=== PATIENT | female | born 1975 | race Caucasian/White ===

== ENCOUNTER → 2017-11-11 11:24 | Outpatient (CLI) | payer BC, SELFPAY ==
[2017-11-16 11:13] LABS: HPV Reflexed? NOT INDICATED
== END ==
PROVIDERS: Visit Provider Obstetrics & Gynecology
DX: Z12.4 Encounter for screening for malignant neoplasm of cervix (principal)
CPT/HCPCS: 88175; G0145

== ENCOUNTER → 2018-04-19 08:09 | Outpatient (CLI) | payer BC, SELFPAY ==
--- NOTE | 2018-04-19 08:12 | BI_ITS ---
MAMMOGRAPHY - BILATERAL SCREENING REASON FOR EXAM: Female, 42 years old. Routine annual screening examination. PERTINENT HISTORY: Grandmother with breast cancer. TECHNIQUE: Digital bilateral breast dewayne (3D mammographic acquisition) in the CC and MLO projections. 2-D mediolateral oblique (MLO) and craniocaudad (CC) views of both breasts were obtained. CAD: Full Field Digital Mammography with Computer Added Detection was performed. COMPARISON: None. Baseline examination. FINDINGS: Breast Composition: The breasts are heterogeneously dense, which may obscure small masses. There are no dominant masses or suspicious calcifications. No other significant abnormalities are identified. BI/SCREENING MAMM (CAD), BILAT IMPRESSION: Negative screening mammogram. Yearly followup mammogram recommended. (A) ASSESSMENT CATEGORY: BIRADS Category 1: Negative. A letter regarding these results will be sent to the patient by the facility within 30 days. Approximately 10% of breast cancers are not detected by mammography. A normal mammogram should not delay biopsy of a clinically suspicious abnormality. [id number] Electronically Signed: Ranjith Padilla MD at 9:38 EST , Service support ,
== END ==
PROVIDERS: Family Provider Family Medicine; PCP Family Medicine; Referring Provider Obstetrics & Gynecology; Visit Provider Obstetrics & Gynecology
DX: Z12.31 Encounter for screening mammogram for malignant neoplasm of breast (principal)
CPT/HCPCS: 77063; 77067

== ENCOUNTER 2021-10-12 08:25 | Day surgery (SDC) | payer BC, SELFPAY ==
[2021-10-12] VITALS (7 sets, daily range): BP systolic 80–123; BP diastolic 48–77; PULSE 62–83; RESP 18–20; TEMP 36.2–36.9; O2SAT 95–100; BMI 24.5
--- NOTE | 2021-10-12 | IMM_PTH ---
PATIENT: YOHAN DIAS LOC: EN U#:[id number] AGE/SX: 46/F ROOM: RE10/12/[address]: Dr. Harriet Chung MD : 1975 BED: DIS: 10/12/2021 SPEC #: [id number] RECD: 10/13/21 07:55 STATUS: JAQUELINE REQ #: [id number] [facility]: 10/12/21 00:[address]: Harriet Chung DEPT: IMMUNOHISTOCHEMISTRY RECD BY: Dolly Malin ENTERED: 10/13/21 07:56 SP TYPE: IMMUNO OTHR DR: Dr. James Alcantar MD Tissues: COLON BIOPSY Procedures: H Pylori (initial) PHYSICIAN & INSTITUTION [place] [address] SPECIMEN INFORMATION: Tissue Source: A. Pre-pyloric biopsy Clinical Info: Anemia Specimen Number: [id number] CPT code: 93630 METHODOLOGY: Deparaffinized sections of prefer/formalin-fixed tissue or PAP/DQ stained slides are incubated with monoclonal/polyclonal antibodies/oligonucleotide probes. Localization is made via biotin free immunoperoxidase method. Appropriate controls are performed and reacted as expected. Results on target cell population are indicated in the following table: RESULTS: ANTIBODY / CLONE RESULT Block A H Pylori (polyclonal) negative These tests were developed and their performance characteristics determined by [facility]. They may not have been cleared or approved by the U.S. Food and Drug Administration. The FDA has determined that such clearance or approval is not necessary. The above immunohistochemical/dualISH markers are ordered and reviewed by the Pathologist. INTERPRETATION: A. Pre-pyloric biopsy: Negative for Helicobacter pylori organisms. SJ:swapna 10/13/21
[2021-10-12] MEDS: Lactated Ringers 1,000 ML 15 ML IV (08:35)
[2021-10-12 08:45] LABS: Internal QC Validated? YES +Cl - CLEAR BKGD; Pregnancy, Urine Negative Negative
--- NOTE | 2021-10-12 08:57 | HP.PCM_ITS ---
HPI - General HPI Narrative YOHAN DIAS, is a 46 F who presents for EGD and colonoscopy due to anemia. Patient was seen in the office back in mid June. Patient states that mid May hemoglobin was 9.6 and dropped to 9.3 in early June as patient initially wanted to try taking iron and see if that helps. Patient states she is not currently on any iron. Patient states she has not had any recent blood work. Patient denies any red or black stools since that appointment. Previously did have occasional bright red blood and she does have a history of hemorrhoids. Patient denies any reflux. Patient's never had a previous colonoscopy. Patient did have a laparoscopic gastric sleeve done in August 2016. No family history of colon cancer. [facility] Medical History (Updated 10/08/21 @ 13:40 by Vicenta Bobo) Anemia Anxiety Anxiety and depression Depression Hypothyroidism Lichen sclerosus Non-smoker Thyroid disease Home Medications clobetasol 0.05 % topical cream 1 applic topical PRN PRN Rash 07/15/21 [History Last Taken Unknown] escitalopram oxalate 20 mg tablet 20 mg PO DAILY 07/15/21 [History Last Taken Unknown] estradiol 0.01% (0.1 mg/gram) vaginal cream 1 g vaginal PRN PRN PRN 07/15/21 [History Last Taken Unknown] hydroxyzine HCl 25 mg tablet 25 mg PO TID PRN Anxiety 07/15/21 [History Last Taken Unknown] levothyroxine 50 mcg tablet 50 mcg PO DAILY 07/15/21 [History Last Taken Unknown] Allergy/AdvReac Type Severity Reaction Status Date / Time No Known Allergies Allergy Verified 10/12/21 08:42 Family History (Updated 07/15/21 @ 09:08 by Briana Doherty) Mother Cancer endometrial Heart disease Hypertension CVA (cerebral vascular accident) Pacemaker Father Hypertension Surgical History (Updated 07/15/21 @ 09:06 by Briana Doherty) History of 3 sections History of dilation and curettage History of gastric restrictive surgery Hx of abdominoplasty Hx of LASIK Social History (Updated 07/15/21 @ 09:08 by Briana Doherty) Smoking Status: Never smoker Past Medical/Surgical History Planned Operation Planned Operative Procedure/s: COLONOSCOPY, EGD Previous Hospitalizations/Surgeries HX Hospitalizations: No Any Problems With Anesthesia: No You/Your Family Experience Fever (Hyperthermia) With Anes: No Cholinesterase deficiency: No Cardiovascular Hx of Irregular Heartbeat and/or Afib: No Hx Heart Attack: No Hx Congestive Heart Failure: No Hx Hypertension: No Hx Pacemaker: No Respiratory Hx Chronic Obstructive Pulmonary Disease (COPD): No Hx Asthma: No Hx Emphysema: No Hx Sleep Apnea: No Hx Respiratory Tract Infection/Cold (presently): No Do You Snore Loudly (louder than talking or can be heard): No Do You Often Feel Tired/ Fatigued/ Sleepy Dring Daytime?: No Has Anyone Observed You Stop Breathing During Sleep?: No Result (for STOP score): Negative Smoking Status: Never smoker Gastrointestinal Hx Gastroesophageal Reflux: No Hx Ulcer: No Neurological Hx Seizures: No Hx Head/Neck Injury: No Hx Headaches: No Hx Back Injury/Pain: Yes Does patient have nerve stimulator: No Reproduction : No Miscellaneous Recent Exposure to Contagious Disease: No Allergies No Known Allergies Allergy (Verified 10/12/21 08:42) Discharge Is Pt Admitted From a Longterm, or a Skilled Nursing: No After D/C, Where Do you Plan to Go: Return Home Vital Signs Vital Signs Vital Signs: 10/12/21 08:42 10/12/21 08:42 Temperature 97.2 F L Temperature Source Temporal Pulse Rate 62 Respiratory Rate 18 Respiratory Pattern Normal Blood Pressure 123/77 H Blood Pressure Mean 92 Blood Pressure Source Monitor Blood Pressure Position Semi-Fowlers Blood Pressure Location Left Arm Pulse Ox 100 Oxygen Delivery Method Room Air Weight Weight: 138 lb 14.259 oz Body Mass Index (BMI) 24.5 Physical Exam Const alert, oriented x3 and no apparent distress HEENT normocephalic and head/scalp atraumatic Resp normal respiratory effort Cardio regular rate GI soft to palpation and non-tender; Negative for non-distended Palpation: Negative for guarding Extremity no clubbing, cyanosis or edema Neuro CN's II-XII intact bilaterally Psych mental status grossly normal Assessment & Plan Assessment/Plan (1) Anemia: PLAN: Plan Plan for an EGD and colonoscopy Surgery Risks - Colonoscopy Risks Include but are not Limited To: Risks include but are not limited to: Bleeding, perforation requiring further surgery, inability to complete colonoscopy requiring barium enema.
--- NOTE | 2021-10-12 09:30 | EGD_PTH ---
PATIENT: YOHAN DIAS LOC: EN U#:[id number] AGE/SX: 46/F ROOM: RE10/12/[address]: Dr. Harriet Chung MD : 1975 BED: DIS: 10/12/2021 SPEC #: [id number] RECD: 10/12/21 11:32 STATUS: JAQUELINE RECaitlin #: [id number] [facility]: 10/12/21 09:[address]: Harriet Chung DEPT: SURGICAL PATHOLOGY RECD BY: Rylie Tesfaye ENTERED: 10/12/21 12:16 SP TYPE: EGD BIOPSY OT DR: Dr. James Alcantar MD Tissues: A - Pylorus B - Ascending colon Procedures: Surgery Specimen Level IV HEADER OPERATION: Colonoscopy, EGD ([facility]) with biopsy and polypectomy PRE-OP DIAGNOSIS: Anemia TISSUE SUBMITTED: A. Pre-pyloric biopsy, B. Ascending colon polyp MICROSCOPIC DIAGNOSIS A. Pre-pyloric biopsy: Mild gastritis. B. Ascending colon polyp, polypectomy: Hyperplastic polyp. Submucosal lipoma. SJ 10/13/21 COMMENT A. The results of immunohistochemistry for Helicobacter pylori will be reported separately ([id number]). Case has been reviewed in consultation with Dr. Thurston who concurs with the above diagnosis. IDC:AM MICROSCOPIC DESCRIPTION Slides are reviewed. A. The specimen shows fragments of gastric mucosa with chronic inflammatory cell infiltrates in the lamina propria consisting of lymphocytes and plasma cells, consistent with mild chronic gastritis. GROSS DESCRIPTION A. Received is one container labeled with the patient name and designated pre-pyloric. The specimen consists of one irregular fragment of light williamson soft tissue that measures 0.3 x 0.3 x 0.1 cm. The specimen is totally submitted in one cassette. B. Received is one container labeled with the patient name and designated ascending colon polyp. The specimen consists of one williamson pink polyp that measures 1.0 x 0.7 x 0.3 cm. The specimen is totally submitted in one cassette. /JOSE:swapna 10/12/21 TC:1 CPT:58462 x2
--- NOTE | 2021-10-12 09:52 | OP.EGD_ITS ---
Patient Name: Rose Mary De Oliveira Procedure Date: 10/12/2021 9:05 AM Date of : 1975 Age: 46 Procedure: Upper GI endoscopy Indications: Iron deficiency anemia Providers: Harriet Chung MD Medicines: Monitored Anesthesia Care Patient Profile: This is a 46 year old female. She is status post laparoscopic sleeve gastrectomy 2017. Complications: No immediate complications. Procedure: Pre-Anesthesia Assessment: - Prior to the procedure, a History and Physical was performed, and patient medications and allergies were reviewed. The patient's tolerance of previous anesthesia was also reviewed. The risks and benefits of the procedure and the sedation options and risks were discussed with the patient. All questions were answered, and informed consent was obtained. Prior Anticoagulants: The patient has taken no previous anticoagulant or antiplatelet agents. ASA Grade Assessment: Per anesthesia. After reviewing the risks and benefits, the patient was deemed in satisfactory condition to undergo the procedure. After obtaining informed consent, the endoscope was passed under direct vision. Throughout the procedure, the patient's blood pressure, pulse, and oxygen saturations were monitored continuously. The colonoscope was introduced through the mouth, and advanced to the second part of duodenum. The upper GI endoscopy was accomplished without difficulty. The patient tolerated the procedure well. Scope In: 9:13:50 AM Scope Out: 9:18:29 AM Total Procedure Duration Time 0 hours 4 minutes 39 seconds Findings: The Z-line was regular and was found 40 cm from the incisors. The examined duodenum was normal. Striped mildly erythematous mucosa without bleeding was found in the prepyloric region of the stomach. Biopsies were taken with a cold forceps for histology. Biopsies were taken with a cold forceps for Helicobacter pylori cultures. Impression: - Z-line regular, 40 cm from the incisors. - Normal examined duodenum. - Erythematous mucosa in the prepyloric region of the stomach. Biopsied. Recommendation: - Await pathology results. - Discharge patient to home (ambulatory). - Resume previous diet. - Continue present medications. Procedure Code(s): --- Professional --- 02588, Esophagogastroduodenoscopy, flexible, transoral; with biopsy, single or multiple Diagnosis Code(s): --- Professional --- K31.89, Other diseases of stomach and duodenum D50.9, Iron deficiency anemia, unspecified CPT copyright 2017 [employer]. All rights reserved. The codes documented in this report are preliminary and upon javascript front end developer review may be revised to meet current compliance requirements. MD Harriet Blanca MD 10/12/2021 9:52:08 AM This report has been signed electronically. Number of Addenda: 0 Note Initiated On: 10/12/2021 9:05 AM
--- NOTE | 2021-10-12 09:52 | OP.CCLET_ITS ---
10/12/2021 James Alcantar Re : Upper GI endoscopy procedure for Rose Mary Alcantar This procedure was performed on Tuesday, October 12, 2021. My impressions and recommendations are as follows: Impressions : - Z-line regular, 40 cm from the incisors. - Normal examined duodenum. - Erythematous mucosa in the prepyloric region of the stomach. Biopsied. Recommendations : - Await pathology results. - Discharge patient to home (ambulatory). - Resume previous diet. - Continue present medications. My findings are described in the full procedure note, which is enclosed. If I can be of further assistance, please feel free to contact me at Doctor phone number(s): , Work: . Sincerely, MD Harriet Blanca MD 10/12/2021 9:52:08 AM This report has been signed electronically.
--- NOTE | 2021-10-12 09:58 | OP.COLON_ITS ---
Patient Name: Rose Mary De Oliveira Procedure Date: 10/12/2021 9:19 AM Date of : 1975 Age: 46 Procedure: Colonoscopy Indications: Iron deficiency anemia Providers: Harriet Chung MD Medicines: Monitored Anesthesia Care Patient Profile: This is a 46 year old female. She is status post laparoscopic sleeve gastrectomy 2017. Last Colonoscopy: none. The patient's first colonoscopy is today. Complications: No immediate complications. Procedure: Pre-Anesthesia Assessment: - Prior to the procedure, a History and Physical was performed, and patient medications and allergies were reviewed. The patient's tolerance of previous anesthesia was also reviewed. The risks and benefits of the procedure and the sedation options and risks were discussed with the patient. All questions were answered, and informed consent was obtained. Prior Anticoagulants: The patient has taken no previous anticoagulant or antiplatelet agents. ASA Grade Assessment: Per anesthesia. After reviewing the risks and benefits, the patient was deemed in satisfactory condition to undergo the procedure. After I obtained informed consent, the scope was passed under direct vision. Throughout the procedure, the patient's blood pressure, pulse, and oxygen saturations were monitored continuously. The colonoscope was introduced through the anus and advanced to the cecum, identified by the appendiceal orifice, ileocecal valve and palpation. The colonoscopy was performed without difficulty. The patient tolerated the procedure well. The quality of the bowel preparation was good. Scope In: 9:19:53 AM Scope Withdrawal Time 0 hours 12 minutes 38 seconds Scope Out: 9:39:55 AM Total Procedure Duration Time 0 hours 20 minutes 2 seconds Findings: A 5 mm polyp was found in the ascending colon. The polyp was sessile. The polyp was removed with a hot snare. Resection and retrieval were complete. The exam was otherwise without abnormality on direct and retroflexion views. Non-bleeding internal hemorrhoids were found. The hemorrhoids were Grade I (internal hemorrhoids that do not prolapse). Impression: - One 5 mm polyp in the ascending colon, removed with a hot snare. Resected and retrieved. - The examination was otherwise normal on direct and retroflexion views. - Non-bleeding internal hemorrhoids. Recommendation: - Discharge patient to home. - Resume previous diet. - Continue present medications. - Await pathology results. - Repeat colonoscopy in 5-10 years for surveillance based on pathology results. Procedure Code(s): --- Professional --- 82884, Colonoscopy, flexible; with removal of tumor(s), polyp(s), or other lesion(s) by snare technique Diagnosis Code(s): --- Professional --- D12.2, Benign neoplasm of ascending colon D50.9, Iron deficiency anemia, unspecified CPT copyright 2017 [employer]. All rights reserved. The codes documented in this report are preliminary and upon personal companion review may be revised to meet current compliance requirements. MD Harriet Blanca MD 10/12/2021 9:57:41 AM This report has been signed electronically. Number of Addenda: 0 Note Initiated On: 10/12/2021 9:19 AM
--- NOTE | 2021-10-12 09:58 | OP.CCLET_ITS ---
10/12/2021 James Alcantar Re : Colonoscopy procedure for Rose Mary Alcantar This procedure was performed on Tuesday, October 12, 2021. My impressions and recommendations are as follows: Impressions : - One 5 mm polyp in the ascending colon, removed with a hot snare. Resected and retrieved. - The examination was otherwise normal on direct and retroflexion views. - Non-bleeding internal hemorrhoids. Recommendations : - Discharge patient to home. - Resume previous diet. - Continue present medications. - Await pathology results. - Repeat colonoscopy in 5-10 years for surveillance based on pathology results. My findings are described in the full procedure note, which is enclosed. If I can be of further assistance, please feel free to contact me at Doctor phone number(s): , Work: . Sincerely, MD Harriet Blanca MD 10/12/2021 9:57:41 AM This report has been signed electronically.
== END 2021-10-12 10:34 | disposition home or self-care (01) ==
LOC: EN 08:26 → AC 08:27
PROVIDERS: Anesthesiology; PCP Family Medicine; Referring Provider Family Medicine; Visit Provider Surgery
PROC: 0DJD8ZZ Inspection of Lower Intestinal Tract, Via Natural or Artificial Opening Endoscopic (ICD-10-PCS; CPT 45378; principal; 2021-10-12 09:25)
DX: K29.50 Unspecified chronic gastritis without bleeding (principal); K31.89 Other diseases of stomach and duodenum; D64.9 Anemia, unspecified; K64.0 First degree hemorrhoids; D17.5 Benign lipomatous neoplasm of intra-abdominal organs; K63.5 Polyp of colon; E03.9 Hypothyroidism, unspecified; F41.9 Anxiety disorder, unspecified; F32.A Depression, unspecified; Z79.899 Other long term (current) drug therapy
CPT/HCPCS: 43239; 45385; 81025; 88305; 88342; J7120; J2405

== ENCOUNTER → 2023-07-08 | Outpatient (CLI) | payer OTHER, SELFPAY ==
--- NOTE | 2023-07-08 10:24 | BI_ITS ---
MAMMOGRAPHY - BILATERAL SCREENING REASON FOR EXAM: Female, 48 years old. Routine annual screening examination. PERTINENT HISTORY: Grandmother with breast cancer. History of prior breast lift. TECHNIQUE: Digital bilateral breast dorie (3D mammographic acquisition) in the CC and MLO projections. 2-D mediolateral oblique (MLO) and craniocaudad (CC) views of both breasts were obtained. CAD: Full Field Digital Mammography with Computer Added Detection was performed. COMPARISON: Comparison is made with prior outside examination dated October 28, 2020 and February 16, 2019 FINDINGS: Breast Composition: The breasts are almost entirely fatty. There is a 7.4 mm x 8.6 mm fat-containing cyst in the upper anterior lateral aspect of the left breast. A more faint calcifications are seen adjacent. This most likely represents post operative changes. The patient will be recalled for additional views including spot images of the left breast in the mediolateral oblique and craniocaudad projections. No other significant abnormalities are identified. BI/SCRN MAMM (CAD)W/DORIE BILAT IMPRESSION: Findings suggestive of a fat-containing cyst in the upper anterior lateral aspect of the left breast with evidence of calcifications surrounding. The patient will be recalled for additional views. Recall Side: Left Breast ASSESSMENT CATEGORY: BIRADS Category 0: Incomplete. Need additional imaging evaluation. A letter regarding these results will be sent to the patient by the facility within 30 days. Approximately 10% of breast cancers are not detected by mammography. A normal mammogram should not delay biopsy of a clinically suspicious abnormality. [id number] Electronically Signed: Ranjith Padilla MD at 11:24 EDT ,
== END | disposition home or self-care (01) ==
LOC: OPBI 10:21
PROVIDERS: PCP Family Medicine; Referring Provider Family Medicine; Visit Provider Family Medicine
DX: Z12.31 Encounter for screening mammogram for malignant neoplasm of breast (principal); Z80.3 Family history of malignant neoplasm of breast
CPT/HCPCS: 77063; 77067

== ENCOUNTER → 2023-07-18 | Outpatient (CLI) | payer OTHER, SELFPAY ==
--- NOTE | 2023-07-18 08:56 | BI_ITS ---
MAMMOGRAPHY - UNILATERAL DIAGNOSTIC: LEFT BREAST REASON FOR EXAM: Female, 48 years old. ABN MAMM PERTINENT HISTORY: Non-contributory. TECHNIQUE: Digital examination. Mediolateral oblique (MLO) and craniocaudad (CC) views of the breast were obtained. CAD: CAD was not performed on this study. COMPARISON: 07/08/2023, 10/28/2020 FINDINGS: Breast Composition: There are scattered areas of fibroglandular density. Magnification views confirm grouped pleomorphic calcifications in the upper outer quadrant of the left breast at mid depth and stereotactic breast biopsy is recommended. No other significant abnormalities are identified. BI/DIAG MAMM W/CAD, UNILAT IMPRESSION: Stereotactic guided biopsy recommended, as described above. (F) ASSESSMENT CATEGORY: BIRADS Category 4: Suspicious. Biopsy Should Be Considered. A letter regarding these results will be sent to the patient by the facility within 30 days. FOLLOW-UP RECOMMENDATION: Stereo biopsy recommended. (F) Approximately 10% of breast cancers are not detected by mammography. A normal mammogram should not delay biopsy of a clinically suspicious abnormality. Electronically Signed: Daniel Steward MD at 9:29 EDT ,
== END | disposition home or self-care (01) ==
LOC: OPBI 08:51
PROVIDERS: PCP Family Medicine; Referring Provider Family Medicine; Visit Provider Family Medicine
DX: R92.8 Other abnormal and inconclusive findings on diagnostic imaging of breast (principal)
CPT/HCPCS: 77065

== ENCOUNTER → 2023-08-12 | Outpatient (CLI) | payer OTHER, SELFPAY ==
--- NOTE | 2023-08-12 | BRBX_PTH ---
PATIENT: YOHAN DIAS LOC: JEFF U#:[id number] AGE/SX: 48/F ROOM: RE08/12/[address]: Dr. Harriet Chung MD : 1975 BED: DIS: 08/12/2023 SPEC #: [id number] RECD: 08/12/23 19:42 STATUS: JAQUELINE RECaitlin #: [id number] [facility]: 08/12/23 00:[address]: Harriet Chung DEPT: SURGICAL PATHOLOGY RECD BY: Dolly Malin ENTERED: 08/15/23 08:19 SP TYPE: BREAST BX OTHR DR: Dr. James Alcantar MD Tissues: Left breast, NOS Procedures: Surgery Specimen Level IV HEADER OPERATION: Left breast stereotactic biopsy PRE-OP DIAGNOSIS: Left breast upper-outer quadrant pleomorphic calcifications mid depth TISSUE SUBMITTED: Left breast tissue- upper outer quadrant /central Ischemic Time: 1 minute Fixation Time: 39 hours MICROSCOPIC DIAGNOSIS Left breast, steratactic biopsy: Focal fibrosis, benign histiocytic reaction and chronic inflammation. Involutional change. Dystrophic microcalcifications. Mild fibrocystic change. No evidence of malignancy. See comment. / 08/16/2023 COMMENT The lesion may represent ruptured cyst and associated reparative and reaction change. Clinical correlation is suggested. MICROSCOPIC DESCRIPTION Slides are reviewed. GROSS DESCRIPTION Received is one container labeled with the patient's name and not further designated. The specimen consists of multiple irregular fragments of yellow-williamson soft tissue measuring in aggregate 6.0 x 3.0 x 0.2cm. The specimen is submitted in its entirety in two cassettes. / 08/15/2023 TC:5 CPT:75974
--- NOTE | 2023-08-12 13:14 | PCM.OPRPT ---
Report of Operation Date of Procedure: 08/12/23 Pre-Operative Diagnosis: Left breast microcalcifications Post-Operative Diagnosis: Same Surgery/Procedure Performed:: Stereotactic left breast biopsy Surgeon: Harriet Chung Type of Anesthesia: Local Specimen's removed: Left breast calcifications upper outer quadrant/central Estimated Blood Loss (mL): <10 cc Description of Procedure: Procedure: Left stereotactic core biopsy Indications: 48year-old female with microcalcifications in the upper outer quadrant/central of the left breast. Risk benefits were discussed the patient and she elected to proceed with stereotactic core biopsy with clip placement Description of procedure: Patient was brought into the mammography suite and laid prone on the stereotactic table. A timeout was completed verifying correct patient, procedure, site, specially, prior to beginning procedure. The left breast was prepped and draped in usual sterile fashion and using local anesthesia was obtained with 1% lidocaine with epi. Patient's left breast was positioned and placed into compression. Initial film showed calcifications are in the center of the compression paddle. 15? views were then taken. The calcifications were localized. The left breast was prepped draped in usual sterile fashion. An 8-gauge mammotome was set up according to the digital coordinates. The tract of the mammotome was anesthetized with local anesthesia and an incision was made with the 11 blade scalpel at the entry site. The mammotome was advanced to the prefire state. Pre-prior films were checked and verified. The mammotome was fired. Post fire films were also checked and verified. Biopsies were taken from 9:00 to 2:00. The specimen was x-rayed and a good representation of the calcifications were within the specimen. Mammotome clip was placed at the 12 o'clock position. The mammotome was removed from the breast. An additional films were taken which showed clip was in place. Pressure was held for hemostasis. Once hemostasis was assured the wound was dressed with Steri-Strips and OpSite. The patient tolerated the procedure well and was discharged from the mammography suite good condition. Complications none
== END | disposition home or self-care (01) ==
PROVIDERS: PCP Family Medicine; Visit Provider Surgery
DX: R92.0 Mammographic microcalcification found on diagnostic imaging of breast (principal)
CPT/HCPCS: 19081; 88305; J7050; A4648